=== PATIENT | male | born 1985 | race Caucasian/White ===

== ENCOUNTER 2016-11-13 18:02 | Emergency (ER) | payer OTHER ==
[~2016-11-13] VITALS: Ht 188 cm; Wt 136.1 kg
[~2016-11-13 18:02] MED LIST: AGM875T PO; BACL10TA PO; CYCL10TA9 PO; HYDR-3720 PO; NAPR-243 PO; PENI250T4 PO; TRM50T PO
--- NOTE | 2016-11-13 18:12 | ED General ---
General Stated Complaint: BLURRY VISION, THIRSTY, PINS AND NEEDLES IN LEGS Source of Information: Patient Exam Limitations: No Limitations History of Present Illness Time Seen by Provider: 18:11 Initial Comments To ER with 2 weeks of blurry vision with frontal headaches that seem to occur in the afternoon at about 3 or 4 p.m. No history of this. He is also got thirst, tingling and pins and needles in his legs. He states diabetes runs in his family that he is not known to be a diabetic. Timing/Duration: Intermittent Severity: Moderate Associated Systoms: Headaches Allergies and Home Medications Allergies Coded Allergies: No Known Drug Allergies (Unverified , 05/28/11) Home Medications Amoxicillin/Clavulanate K 1 Tab Tablet, 1 TAB PO BID, #20 Prescribed by: NISHA ROLLINS on 05/29/13 1758 Naproxen 500 Mg Tablet, 1 EACH PO BID PRN for PAIN, #20 Prescribed by: NISHA ROLLINS on 05/29/13 175 Tramadol Hcl 50 Mg Tab, 50 MG PO Q6H, #14 Prescribed by: NISHA ROLLINS on 05/29/137 Constitutional: see HPI EENTM: blurred vision, see HPI Respiratory: no symptoms reported Genitourinary: no symptoms reported Musculoskeletal: no symptoms reported Skin: no symptoms reported Psychiatric/Neurological: No Symptoms Reported Hematologic/Lymphatic: No Symptoms Reported Immunological/Allergic: no symptoms reported Past Bhetpgy-Ocyqnd-Zvsvbs Hx Patient Social History Recent Foreign Travel: No Contact w/Someone Who Travel: No Surgeries HX Surgeries: Yes Respiratory Hx Respiratory Disorders: No Cardiovascular Hx Cardiac Disorders: No Neurological Hx Neurological Disorders: No Reproductive System Hx Reproductive Disorders: No Genitourinary Hx Genitourinary Disorders: No Gastrointestinal Hx Gastrointestinal Disorders: No Musculoskeletal Hx Musculoskeletal Disorders: No Endocrine Hx Endocrine Disorders: No HEENT HX ENT Disorders: No Cancer Hx Cancer: No Psychosocial Hx Psychiatric Problems: No Physical Exam Vital Signs Vital Sign - Last 12Hours 11/13/16 18:10 Temp 97.9 Pulse 87 Resp 18 B/P (MAP) 160/96 Pulse Ox 95 Capillary Refill : General Appearance: No Apparent Distress, WD/WN, Obese Eyes: Bilateral Eye EOMI, Bilateral Eye Normal Inspection, Bilateral Eye PERRL HEENT: PERRL/EOMI, TMs Normal Neck: Full Range of Motion, Normal Inspection Respiratory: Normal Breath Sounds, No Accessory Muscle Use, No Respiratory Distress Cardiovascular: Regular Rate, Rhythm, Normal Peripheral Pulses Gastrointestinal: Non Tender, Soft Extremity: Normal Capillary Refill, Normal Inspection Neurologic/Psychiatric: Alert, Oriented x3, No Motor/Sensory Deficits Skin: Normal Color, Warm/Dry Progress/Results/Core Measures Results/Orders Lab Results Laboratory Tests Test 11/13/16 18:09 11/13/16 18:25 Range/Units Glucometer 117 H 70-110 MG/DL White Blood Count 9.9 4.3-11.0 10^3/uL Red Blood Count 5.03 4.35-5.85 10^6/uL Hemoglobin 15.4 13.3-17.7 G/DL Hematocrit 45 40-54 % Mean Corpuscular Volume 90 80-99 FL Mean Corpuscular Hemoglobin 31 25-34 PG Mean Corpuscular Hemoglobin Concent 34 32-36 G/DL Red Cell Distribution Width 12.7 10.0-14.5 % Platelet Count 327 130-400 10^3/uL Mean Platelet Volume 9.2 7.4-10.4 FL Neutrophils (%) (Auto) 67 42-75 % Lymphocytes (%) (Auto) 24 12-44 % Monocytes (%) (Auto) 8 0-12 % Eosinophils (%) (Auto) 1 0-10 % Basophils (%) (Auto) 0 0-10 % Neutrophils # (Auto) 6.6 1.8-7.8 X 10^3 Lymphocytes # (Auto) 2.4 1.0-4.0 X 10^3 Monocytes # (Auto) 0.8 0.0-1.0 X 10^3 Eosinophils # (Auto) 0.1 0.0-0.3 10^3/uL Basophils # (Auto) 0.0 0.0-0.1 10^3/uL Urine Color YELLOW Urine Clarity CLEAR Urine pH 6 5-9 Urine Specific [place] 1.010 L 1.016-1.022 Urine Protein NEGATIVE NEGATIVE Urine Glucose (UA) NEGATIVE NEGATIVE Urine Ketones NEGATIVE NEGATIVE Urine Nitrite NEGATIVE NEGATIVE Urine Bilirubin NEGATIVE NEGATIVE Urine Urobilinogen NORMAL NORMAL MG/DL Urine Leukocyte Esterase NEGATIVE NEGATIVE Urine RBC (Auto) NEGATIVE NEGATIVE Urine RBC NONE /HPF Urine WBC NONE /HPF Urine Squamous Epithelial Cells RARE /HPF Urine Crystals NONE /LPF Urine Bacteria NONE /HPF Urine Casts NONE /LPF Urine Mucus NEGATIVE /LPF Urine Culture Indicated NO Sodium Level 137 135-145 MMOL/L Potassium Level 4.0 3.6-5.0 MMOL/L Chloride Level 103 98-107 MMOL/L Carbon Dioxide Level 18 L 21-32 MMOL/L Anion Gap 16 H 5-14 MMOL/L Blood Urea Nitrogen 13 7-18 MG/DL Creatinine 0.94 0.60-1.30 MG/DL Estimat Glomerular Filtration Rate > 60 BUN/Creatinine Ratio 14 Glucose Level 112 H 70-105 MG/DL Calcium Level 9.5 8.5-10.1 MG/DL Total Bilirubin 0.3 0.1-1.0 MG/DL Aspartate Amino Transf (AST/SGOT) 31 5-34 U/L Alanine Aminotransferase (ALT/SGPT) 48 0-55 U/L Alkaline Phosphatase 81 40-136 U/L Total Protein 8.5 H 6.4-8.2 G/DL Albumin 4.9 H 3.2-4.5 G/DL Thyroid Stimulating Hormone (TSH) 3.57 0.35-4.94 UIU/ML My Orders Orders - NISHA ROLLINS APRN Cbc With Automated Diff (11/13/16 18:09) Comprehensive Metabolic Panel (11/13/16 18:09) Ua Culture If Indicated (11/13/16 18:09) Ct Head Wo (11/13/16 18:09) Saline Lock/Iv-Start (11/13/16 18:09) Ketorolac Injection (Toradol Injection) (11/13/16 18:15) Thyroid Stimulating Hormone (11/13/16 18:30) Medications Given in ED Current Medications Medications Dose Ordered Sig/Mariluz Route Start Time Stop Time Status Last Admin Dose Admin Ketorolac Tromethamine 30 mg ONCE ONCE IVP 11/13/16 18:15 11/13/16 18:16 DC 11/13/16 18:27 30 MG Vital Signs/I&O Vital Sign - Last 12Hours 11/13/16 18:10 Temp 97.9 Pulse 87 Resp 18 B/P (MAP) 160/96 Pulse Ox 95 Departure Impression Impression: Primary Impression: Blurred vision Additional Impressions: Frontal headache Paresthesia Disposition: 01 HOME, SELF-CARE Condition: Stable Departure-Patient Inst. Decision time for Depature: 19:26 Referrals: NO,LOCAL PHYSICIAN (PCP/Family) Primary Care Physician Patient Instructions: NO INSTRUCTIONS GIVEN Add. Discharge Instructions: 1. Follow-up with one of the physicians listed for further evaluation of your symptoms 2. Return to ER for any worsening 3. You should also follow-up with one of the physicians listed Work/School Note: Local Medical Staff Listing NISHA ROLLINS APRN Nov 13, 2016 18:12
[2016-11-13] MEDS ORDERED: KETOROLAC 30 MG/ML VIAL IVP ONE (18:15)
[2016-11-13 18:33] LABS: BASOPHILS % (AUTO) 0 % (0-10); BILIRUBIN,URINE NEGATIVE (NEGATIVE); EOSINOPHILS # (AUTO) 0.1 10^3/uL (0.0-0.3); EOSINOPHILS % (AUTO) 1 % (0-10); KETONES,URINE NEGATIVE (NEGATIVE); LEUKOCYTE ESTERASE ,URINE NEGATIVE (NEGATIVE); LYMPHOCYTES # (AUTO) 2.4 X 10^3 (1.0-4.0); LYMPHOCYTES % (AUTO) 24 % (12-44); MEAN CORPUSCULAR HEMOGLOBIN 31 PG (25-34); MEAN CORPUSCULAR HGB CONC 34 G/DL (32-36); MEAN CORPUSCULAR VOLUME 90 FL (80-99); MEAN PLATELET VOLUME 9.2 FL (7.4-10.4); MONOCYTES # (AUTO) 0.8 X 10^3 (0.0-1.0); MONOCYTES % (AUTO) 8 % (0-12); NEUTROPHILS # (AUTO) 6.6 X 10^3 (1.8-7.8); NEUTROPHILS % (AUTO) 67 % (42-75); NITRITE,URINE NEGATIVE (NEGATIVE); PH,URINE 6 (5-9); PLATELET COUNT 327 10^3/uL (130-400); PROTEIN,URINE NEGATIVE (NEGATIVE); RED BLOOD COUNT 5.03 10^6/uL (4.35-5.85); RED CELL DISTRIBUTION WIDTH 12.7 % (10.0-14.5); UROBILINOGEN,URINE NORMAL (NORMAL); WHITE BLOOD COUNT 9.9 10^3/uL (4.3-11.0)
[2016-11-13 18:40] LABS: SQUAMOUS EPITHELIAL CELL,UR RARE /HPF
--- NOTE | 2016-11-13 18:41 | Diagnostic Imaging Report ---
PROCEDURE: CT head without contrast. TECHNIQUE: Multiple contiguous axial images were obtained through the brain without the use of intravenous contrast. INDICATION: Dizziness. Blurred vision. FINDINGS: The ventricles are normal in size, shape and position. There is no acute parenchymal hemorrhage, edema or mass. There is no extra-axial mass or hemorrhage. There is no acute bony abnormality. IMPRESSION: Normal CT of the head. There is no change from 11/26/11. Dictated by: Dictated on workstation # [id number]
[2016-11-13 18:54] LABS: ALANINE AMINOTRANSFERASE 48 U/L (0-55); ALBUMIN 4.9 G/DL (3.2-4.5); ANION GAP 16 MMOL/L (5-14); ASPARTATE AMINO TRANSFERASE 31 U/L (5-34); BILIRUBIN,TOTAL 0.3 MG/DL (0.1-1.0); BLOOD UREA NITROGEN 13 MG/DL (7-18); BUN/CREATININE RATIO 14; CALCIUM 9.5 MG/DL (8.5-10.1); CARBON DIOXIDE 18 MMOL/L (21-32); CHLORIDE 103 MMOL/L (98-107); CREATININE SERUM 0.94 MG/DL (0.60-1.30); GFR ESTIMATED > 60; GLUCOSE 112 MG/DL (70-105); SODIUM 137 MMOL/L (135-145); TOTAL PROTEIN 8.5 G/DL (6.4-8.2)
[2016-11-13 19:13] LABS: THYROID STIMULATING HORMONE 3.57 UIU/ML (0.35-4.94)
[2016-11-13 19:42] VITALS: BP 141/98
== END 2016-11-13 19:42 | disposition home or self-care (01) ==
LOC: EDUNIT# 18:02 → ER 18:04
DX: H53.8 Other visual disturbances (principal); R51 Headache; R20.2 Paresthesia of skin; Z83.3 Family history of diabetes mellitus
CPT/HCPCS: 36415; 70450; 80053; 81000; 82962; 84443; 85025; 96374; 99283

== ENCOUNTER 2018-10-14 19:20 | Emergency (ER) | payer SELFPAY ==
[~2018-10-14] VITALS: Ht 182.9 cm; Wt 122.5 kg
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
[2018-10-14] MEDS ORDERED: KETOROLAC 60 MG/2 ML VIAL IM ONE (20:00)
[2018-10-14] MEDS ORDERED: oxyCODONE/APAP 5/325MG (PERCOCET 5) TABLET PO ONE (20:00)
[2018-10-14] MEDS ORDERED: RX-HYDROCODONE/APAP 5/325 MG #4 TAB PK PO PRN (20:00)
[2018-10-14] MEDS ORDERED: OXYC1TAB87 PO (20:10)
--- NOTE | 2018-10-14 20:43 | NUR ---
NO IV WAS STARTED ON THIS PT.
[2018-10-14 20:54] VITALS: BP 160/110
[2018-10-14] MEDS ORDERED: BACITRACIN OINTMENT 28 GM TUBE TOP SCH (21:00)
== END 2018-10-14 20:56 | disposition home or self-care (01) ==
LOC: EDUNIT# 19:20 → ER 19:21
DX: T23.201A Burn of second degree of right hand, unspecified site, initial encounter (principal); T23.202A Burn of second degree of left hand, unspecified site, initial encounter; T23.231A Burn of second degree of multiple right fingers (nail), not including thumb, initial encounter; T23.232A Burn of second degree of multiple left fingers (nail), not including thumb, initial encounter; T31.0 Burns involving less than 10% of body surface; Y26.XXXA Exposure to smoke, fire and flames, undetermined intent, initial encounter

== ENCOUNTER 2022-08-10 05:46 | Emergency (ER) | payer SELFPAY ==
[~2022-08-10] VITALS: Ht 190 cm; Wt 150.0 kg
[~2022-08-10 05:46] MED LIST changes: +OXYC1TAB87 PO
--- NOTE | 2022-08-10 06:04 | ED Lower Extremity ---
General Chief Complaint: Lower Extremity Stated Complaint: RT FOOT PX,BURNING,SWOLLEN Source: patient Exam Limitations: no limitations History of Present Illness Date Seen by Provider: Aug 10, 2022 Time Seen by Provider: 05:51 Initial Comments Pleasant 36-year-old male with past medical history of hypertension and obesity coming in due to right big toe pain. Started a couple days ago, sharp, worse with movement, better with rest. Took some ibuprofen and Tylenol just prior to arrival which has been helping as well. Denies any fever, significant redness spreading up his foot, calf swelling or pain, prior history of DVT or PE, denies any trauma to it, or any other concerns. He states this has happened in the p ast to the same toe. Denies any recent alcohol intake, but did recently have a large amount of red meat. Otherwise denying any other acute complaints. Allergies and Home Medications Allergies Coded Allergies: No Known Drug Allergies (Unverified , 05/28/11) Patient Home Medication List Home Medication List Reviewed: Yes Amoxicillin/Clavulanate K (Augmentin 875-125 Tablet) 1 Tab Tablet, 1 TAB PO BID Prescribed by: NISHA ROLLINS on 05/29/131757 Colchicine (Colchicine) 0.6 Mg Tablet, 0.6 MG PO Q1HR PRN for PAIN-SEVERE (8-10) Prescribed by: SYMONE VENTURA on 08/10/2217 Naproxen (Naprosyn) 500 Mg Tablet, 1 EACH PO BID PRN for PAIN Prescribed by: NISHA ROLLINS on 05/29/131756 Oxycodone HCl/Acetaminophen (Percocet 5-325 mg Tablet) 1 Each Tablet, 1 TAB PO Q4H Prescribed by: NISHA ROLLINS on 10/14/182009 Tramadol Hcl (Ultram) 50 Mg Tab, 50 MG PO Q6H Prescribed by: NISHA ROLLINS on 05/29/131756 Review of Systems Constitutional: No fever EENTM: no symptoms reported Respiratory: no symptoms reported Cardiovascular: no symptoms reported Gastrointestinal: no symptoms reported Genitourinary: no symptoms reported Musculoskeletal: see HPI Skin: no symptoms reported Psychiatric/Neurological: No Symptoms Reported All Other Systems Reviewed Negative Unless Noted: Yes Past Huxbvzz-Dqgnfc-Ltqyps Hx Patient Social History Tobacco Use?: No Substance use?: No Alcohol Use?: No Seasonal Allergies Seasonal Allergies: No Past Medical History Surgeries: No Reproductive Disorders: No Physical Exam Vital Signs Vital Signs - First Documented 08/10/22 06:00 Temp 36.0 Pulse 86 Resp 16 B/P (MAP) 155/98 (117) Pulse Ox 97 O2 Delivery Room Air Capillary Refill : Height, Weight, BMI Height: 6'2.00" Weight: 270lbs. oz. 122.724654li; BMI Method:Estimated General Appearance: WD/WN HEENT: PERRL/EOMI, normal ENT inspection, pharynx normal Neck: non-tender, full range of motion, normal inspection Cardiovascular: regular rate, rhythm, no edema, no murmur Respiratory: chest non-tender, lungs clear, normal breath sounds, no respiratory distress, no accessory muscle use Gastrointestinal: normal bowel sounds, non tender, soft; No guarding Back: normal inspection Feet: right foot other (Right big toe with very trace amount of erythema compared to the left, pain with any movement of the big toe, some tenderness to palpation as well, normal distal sensation and pulses, normal capillary refill, no open wounds) Neurologic/Tendon: normal sensation, normal motor functions, normal tendon functions Neurologic/Psychiatric: no motor/sensory deficits, alert, normal mood/affect Skin: normal color, warm/dry Lymphatic: no adenopathy Progress/Results/Core Measures Results/Orders My Orders Orders - SYMONE VENTURA MD Foot, Right, 3 View (08/10/22 05:57) Colchicine Tablet (Colcrys Tablet) (08/10/22 06:15) Vital Signs/I&O 08/10/22 08/10/22 06:00 06:18 Temp 36.0 Pulse 86 84 Resp 16 16 B/P (MAP) 155/98 (117) 155/98 Pulse Ox 97 97 O2 Delivery Room Air Room Air Progress Progress Note : Progress Note 36-year-old male with above history coming in due to right great toe pain. ABCs were intact and vitals were stable on presentation. Physical exam with mild phil thema and pain with movement of the right great toe. Given this is occurred in the past, the time course that it has occurred at this time, afebrile, well- appearing, very unlikely to be a septic joint. Much more likely to be gout versus pseudogout. We will get an x-ray to make sure there is no destructive process or obvious infectious process going on as well. X-ray my interpretation with no fracture or obvious destructive process such as osteomyelitis. 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 Given the lack of calcium pyrophosphate on x-ray, diagnosis likely consistent with gout. He just received ibuprofen and Tylenol. We will trial colchicine and have him follow-up with his PCP. Unfortunately, the trace amount of fluid does not appear amenable to an aspiration of his joint. I discussed that is the only way to formally diagnose gout. I gave him return precautions for any type of infectious symptoms or any other concerns such as the pain is getting worse. Diagnostic Imaging Diagonstic Imaging: Xray (right foot) Comments NAME: DOMINIC CHAVEZ [facility] REC#: [id number] PT STATUS: REG ER : 1985 PHYSICIAN: SYMONE VENTURA MD ADMIT DATE: 08/10/22/ER Draft Date of Exam:08/10/22 FOOT, RIGHT, 3 VIEW CLINICAL HISTORY: Right-sided foot pain. COMPARISON: None. TECHNIQUE: 3 views of the right foot. FINDINGS: There is no acute fracture or dislocation of the right foot. Alignment is anatomic. The imaged joint spaces are preserved. No focal osseous lesions. IMPRESSION: 1. No acute fracture or dislocation in the right foot. Dictated on workstation # [id number] Dict: 08/10/22 0616 Trans: 08/10/22 0617 [id number] Interpreted by: ANTONY CHAMPION DO Electronically signed by: Departure Impression Primary Impression: Inflammatory arthropathy Disposition: HOME, SELF-CARE Condition: Stable Departure-Patient Inst. Decision time for Depature: 06:14 Referrals: CLAUDINE PETERS DO (PCP/Family) Primary Care Physician Patient Instructions: Gout (DC), Lifestyle Changes to Manage Gout Add. Discharge Instructions: This appears most consistent with gout. We gave you a dose of colchicine here. You can take 0.6 mg 1 to 2 hours after the initial dose, and a third dose 1 to 2 hours after that. After that, try to manage it with ibuprofen 600 to 800 mg every 6 hours. You can also add in Tylenol 1000 mg every 6-8 hours with this. Follow-up with your regular doctor to discuss potentially being put on a medication such as allopurinol to help prevent gout episodes. Gout is technically diagnosed by sticking a needle into the joint and pulling off the fluid. We have a high suspicion that this is gout, but if your joint ever swells up large and would be amenable to a joint aspiration, I recommend fo llowing up with an orthopedist to try to get a formal diagnosis. If you develop infectious symptoms such as fever, redness spreading from the joint all the way up your leg, or pain is not improving over time, I would want you to be seen again. Scripts Colchicine (Colchicine) 0.6 Mg Tablet 0.6 MG PO Q1HR PRN for PAIN-SEVERE (8-10), #2 TAB Prov: SYMONE VENTURA MD 08/10/22 Work/School Note: Work Release Form Date Seen in the Emergency Department: Aug 10, 2022 Return to Work: Aug 11, 2022 Restrictions: No Restrictions SYMONE VENTURA MD Aug 10, 2022 06:04
[2022-08-10] MEDS ORDERED: COLCHICINE 0.6 MG (COLCRYS) TABLET PO ONE (06:15)
[2022-08-10] MEDS ORDERED: COLC0.6T59 PO (06:17)
--- NOTE | 2022-08-10 06:17 | Diagnostic Imaging Report ---
CLINICAL HISTORY: Right-sided foot pain. COMPARISON: None. TECHNIQUE: 3 views of the right foot. FINDINGS: There is no acute fracture or dislocation of the right foot. Alignment is anatomic. The imaged joint spaces are preserved. No focal osseous lesions. IMPRESSION: 1. No acute fracture or dislocation in the right foot. Dictated by: Dictated on workstation # [id number]
[2022-08-10 06:18] VITALS: BP 155/98
== END 2022-08-10 06:33 | disposition home or self-care (01) ==
LOC: EDUNIT# 05:46 → ER 05:50
DX: M12.9 Arthropathy, unspecified (principal); E66.9 Obesity, unspecified; Z68.41 Body mass index [BMI] 40.0-44.9, adult
CPT/HCPCS: 73630